=== PATIENT | male | born 1970 | race Native Hawaiian/Other Pacific Islander ===

== ENCOUNTER 2023-12-03 12:55 | Emergency (ER) | payer MEDICARE, MEDICAID, SELFPAY ==
--- NOTE | ~2023-12-03 | CT_ITS ---
EXAMINATION: CT CHEST WITH CONTRAST CLINICAL INFORMATION: Hemoptysis COMPARISON: Chest radiograph from 12/03/2023 TECHNIQUE: Multidetector volumetric CT imaging of the chest was obtained after the administration of 50 mL of Omnipaque 350 intravenous contrast without immediate adverse reactions. Axial MIP volume rendering provided. Sagittal and coronal reformatted images were obtained. This CT examination was performed using dose optimization techniques as appropriate, variously including the following: *Automated exposure control *Adjustment of mA and/or kV according to patient size (this includes techniques or standardized protocols for targeted exams where dose is matched to indication/reason for exam; i.e. extremities or head) *Use of iterative reconstruction technique DLP: 393 mGy-cm FINDINGS: LUNGS/PLEURA: Severe emphysematous changes with large bulla formation in the bilateral lung apices. Spiculated nodular focus along the lateral aspect of the right upper lobe (series 5, image 163) measures 2.1 x 1.7 cm with pleural tethering. Nodular formation in the left upper lobe (series 5, image 123) measuring 9 mm. Central airways are patent. No pneumothorax. No large pleural effusion. MEDIASTINUM: Heart is nonenlarged. No pericardial effusion. No coronary calcifications noted. Poor contrast bolus timing limits evaluation of vascular structures. Aorta is nonaneurysmal. Main pulmonary artery is enlarged. No enlarged lymph nodes per size criteria. Calcifications along the left hilar region may reflect calcified lymph nodes potentially representing sequela of granulomatous disease. Visualized portions of the thyroid are unremarkable AXILLA: No lymphadenopathy. UPPER ABDOMEN: Small hiatal hernia. In the region of the presumed spleen is a irregular/lobulated appearing structure which may reflect prior trauma of the spleen no nonspecific. Hypodense focus right renal upper pole demonstrating fluid attenuation statistically representing cysts, not requiring follow-up. OSSEOUS STRUCTURES: Multilevel degenerative changes of the thoracolumbar spine. CT/CT chest w IV con IMPRESSION: 1. Severe emphysematous changes with large bulla formation in the bilateral lung apices. 2. Spiculated nodular focus along the lateral aspect of the right upper lobe measures 2.1 x 1.7 cm with pleural tethering. Nodular formation in the left upper lobe measuring 9 mm. Follow-up as per Fleischner criteria. 3. Main pulmonary artery is enlarged suggesting elements of pulmonary hypertension. 4. Small hiatal hernia. 5. In the region of the presumed spleen is a irregular/lobulated appearing structure which may reflect prior trauma of the spleen, though nonspecific. Various management parameters for solitary pulmonary nodules are in the literature. According to the Fleischner Society, recommendations for pulmonary nodules are as follows: According to the UPDATED 2017 Fleischner Society recommendations, the advised follow-up imaging for multiple solid nodules, the largest measuring 6 mm or greater, is: HIGH RISK PATIENT: CT at 3-6 months, then at 18-24 months.
--- NOTE | ~2023-12-03 | XR_ITS ---
EXAMINATION: XR CHEST CLINICAL INFORMATION: Bloody sputum for 3 days COMPARISON: None available. TECHNIQUE: 2 views of the chest were obtained. FINDINGS: Moderate emphysematous disease. There are hazy opacities in the right upper mid lung zones. No left-sided areas of consolidation. No pleural effusions. The cardiomediastinal silhouette is normal. XR/XR chest 2V IMPRESSION: Hazy opacities in the right upper mid lung zones may represent pneumonia in the appropriate clinical setting.
[2023-12-03 13:25] VITALS: BP 122/67; PULSE 79; RESP 18; TEMP 36.4; O2SAT 95; BMI 28.2
--- NOTE | 2023-12-03 13:25 | ED_ITS ---
HPI - General Adult General Chief complaint: General Medical Stated complaint: Spitting up blood Time Seen by Provider: 12/03/23 13:57 Source: patient Mode of arrival: ambulatory Limitations: no limitations History of Present Illness ED Provider: Dr. Adams HPI narrative: Patient with a history of lung disease secondary to smoking history, states that he has had lung surgery in the past but couldn't tell me why, now with coughing up blood for the last 3 mornings. Onset (ago): day(s) Severity: mild Exacerbating factors: other (coughing) Related Data Allergies Allergy/AdvReac Type Severity Reaction Status Date / Time No Known Allergies Allergy Verified 12/03/23 13:27 Review of Systems 2 Review of Systems: Yes all other systems are reviewed and are negative Neurologic: Denies Sensory deficit (Neuro) [facility] Past Medical History Medical History (Updated 12/03/23 @ 17:11 by Meir Adams MD) Asthma Diabetes Chronic pain Social History Social History Smoked in Last 30 Days: No Use of substances other than those prescribed or required for medical reasons: No Advance Directives: No Advance Directives Information Provided: No Physical Exam ED Vital Signs: Vital Signs - 24 hr 12/03/23 13:25 12/03/23 15:42 Temperature 97.5 F 98.3 F Pulse Rate 79 78 Respiratory Rate 18 20 Blood Pressure 122/67 106/67 Pulse Oximetry 95 94 Oxygen Delivery Method Room Air Room Air BMI result Body Mass Index 28.2 Const General: healthy appearing Nutritional Appearance: average body habitus Orientation/consciousness: oriented to person and patient oriented x3 Limitations: no limitations HENMT Head: Yes normal to inspection Ears: external ears normal General nose exam: Normal external nose present Mouth: Normal oral and palatal mucosa present and oropharynx normal Throat: Yes posterior oropharynx normal Eyes General: appearance normal, both eyes and all related structures Neck Neck: Yes normal visual inspection Chest Chest palpation & inspection: normal inspection of the chest Resp Auscultation: clear to auscultation bilaterally Cardio Jugular venous distension: no JVD Rate: regular rate Rhythm: regular rhythm Heart sounds: S1 normal heart sound present and S2 normal heart sound present GI Inspection: Yes normal to inspection Palpation (GI): Soft to palpation, nontender and No hepatosplenomegaly present Auscultation: normal bowel sounds General: Yes no CVA tenderness Back/Spine/Pelvis Back: no CVA tenderness Skin General skin exam: no rashes or lesions noted Neuro General: oriented to person and patient oriented x3 Cranial nerves: Yes CN's II-XII intact bilaterally Motor exam (neuro): 5/5 motor strength present throughout Sensory Exam: No Sensory deficit (Neuro) Extrem General: Yes normal to inspection Psych Appearance: grossly normal Course Course Course Narrative: This is a rapid medical exam performed by Michele Escobedo NP: Additional HPI, ROS, PE not included below will be deferred to primary provider. Patient is a 53-year-old male presenting to the ED with complaint of bloody sputum for the past 3 days. States he wakes in the morning and is coughing up the blood sputum, denies other episodes throughout the day. Recently quit smoking 3 months ago. Denies cough or fevers. Plan: CXR, labs Reevaluation(s) Reevaluation #1: Patient did not want to wait so he left prior to my getting the CT readings. I just called the patient to let him know that he has a spiculated lesion in the upper lobe and this could be cancer. He states that he understands Time: 17:05 Medications Administered Discontinued Medications Generic Name Dose Route Start Last Admin Trade Name Domenicoq PRN Reason Stop Dose Admin Iohexol 100 ml 12/03/23 14:50 12/03/23 14:50 Iohexol 350 Mg/Ml 100 Ml Infus..Btl IV 12/03/23 14:51 65 ml ONCE ONE Administration Medical Decision Making Differential Diagnosis Differential Diagnoses: The differential diagnosis associated with the presentation includes (pneumonia, lung cancer, copd exacerbation) Admission/Observation Consideration of admission/observation: Escalation of care including admission/observation considered (upon arrival patient was considered for admission) Lab Data MDM Lab Attestation statement: I reviewed the patient's lab results. 12/03/23 14:16 12/03/23 14:16 Labs: Lab Results 12/03/23 Range/Units 14:16 WBC 8.8 (4.8-10.8) X10*3/uL RBC 4.14 L (4.60-5.80) X10*6/uL Hgb 12.1 L (14.0-18.0) g/dl Hct 36.4 L (42.0-52.0) % MCV 87.9 (80.0-98.0) fL MCH 29.2 (27.0-33.0) pg MCHC 33.2 (31.0-36.0) g/dl RDW 14.7 (11.0-16.0) % Plt Count 363 (160-400) X10*3/uL MPV 9.4 (9.4-12.4) fL Immature Gran % (Auto) 0.2 (0.0-0.4) % Neut % (Auto) 52.4 (45-73) % Lymph % (Auto) 31.7 (20-40) % Bertie % (Auto) 11.9 H (2-11) % Eos % (Auto) 2.9 (0-4) % Baso % (Auto) 0.9 (0-2) % Lymph # (Auto) 2.8 (1.2-4.9) X10*3/uL Bertie # (Auto) 1.1 (0.1-1.2) X10*3/uL Eos # (Auto) 0.3 (0.0-0.4) X10*3/uL Baso # (Auto) 0.1 (0.0-0.2) X10*3/uL Abs Immat Gran (auto) 0.02 (0.00-0.03) X10*3/uL Absolute Neuts (auto) 4.6 (2.0-8.3) x10*3/uL Absolute Nucleated RBC 0.000 (0.0-0.012) X10*3/uL Nucleated RBC % (auto) 0.0 (0.0-0.2) /100WBC Sodium 141 (135-145) mmol/L Potassium 4.8 (3.3-5.1) mmol/L Chloride 107 (96-108) mmol/L Carbon Dioxide 26 (22-29) mmol/L Anion Gap 13 (12-20) BUN 31 H (9-16) mg/dL Creatinine 0.95 (0.5-1.4) mg/dL Estim Creat Clear Calc 112.1 Estimated GFR > 60 Random Glucose 131 H (60-115) mg/dL Calcium 10.1 (8.4-10.2) mg/dL Total Bilirubin 0.1 (0.0-1.0) mg/dL AST 12 (5-37) U/L ALT 14 (0-40) U/L Alkaline Phosphatase 98 (39-117) U/L Total Protein 7.8 (6.5-8.0) g/dL Albumin 4.3 (3.5-5.0) g/dL Influenza Type A (PCR) NEGATIVE (Negative) Influenza Type B (PCR) NEGATIVE (Negative) RSV RNA Qual (PCR) NEGATIVE (Negative) SARS-CoV-2 RNA (RT-PCR) NEGATIVE (Negative) Independent Interpretation I performed an independent interpretation of an: Plain X-Ray (Copd changes) and CT Scan (severe bulla and Copd changes) Radiology Impression Discussion of test interpretation with radiology: I have reviewed the radiologist's reading. (spiculated lesion in the upper lobe of lung concerning for Cancer) Prescription Management I considered prescription management with: Antibiotic (no evidence of pneumonia will not place on abx) Chronic Conditions Patient?s care impacted by: Other (copd) Social Determinants Patient?s care significantly limited by Social Determinants of Health including: Low income Discharge Plan Discharge Clinical Impression: Hemoptysis, Lung mass Patient Disposition: Home, Self-Care Instructions: Hemoptysis (ED) Additional Instructions: there is a spiculated lesion in the upper lobe of the lung this is concerning for cancer Referrals: Get Morin III, MD [Primary Care Provider] - 2 days Print Language: German
[2023-12-03 14:20] LABS: MANUAL DIFF FLAG NO
--- NOTE | 2023-12-03 14:23 | PC.NURSE ---
patient a&ox3, uncooperative not wanting iv or nasal swab but ultimately allowed this nurse and tech to obtain swab/labs and insert IV, pt c/o 02/15 abd pain, also stating I havent taken any of my meds today and I need them all this nurse inquired wondering why he didn't take his medication and pt stated I miss the med pass I guess will notify provider and continue to monitor.
[2023-12-03 14:26] LABS: Basophils Absolute Auto 0.1 X10*3/uL (0.0-0.2); Basophils Percent Auto 0.9 % (0-2); Eosinophils Absolute Auto 0.3 X10*3/uL (0.0-0.4); Eosinophils Percent Auto 2.9 % (0-4); Hematocrit 36.4 % (42.0-52.0); Hemoglobin 12.1 g/dl (14.0-18.0); Imm Gran Abs Auto 0.02 X10*3/uL (0.00-0.03); Imm Gran Pct Auto 0.2 % (0.0-0.4); Lymphocytes Absolute Auto 2.8 X10*3/uL (1.2-4.9); Lymphocytes Percent Auto 31.7 % (20-40); Mean Corpuscular HGB Conc 33.2 g/dl (31.0-36.0); Mean Corpuscular Hemoglobin 29.2 pg (27.0-33.0); Mean Corpuscular Volume 87.9 fL (80.0-98.0); Mean Platelet Volume 9.4 fL (9.4-12.4); Monocytes Absolute Auto 1.1 X10*3/uL (0.1-1.2); Monocytes Percent Auto 11.9 % (2-11); Neutrophils Absolute Auto 4.6 x10*3/uL (2.0-8.3); Neutrophils Percent Auto 52.4 % (45-73); Platelet Count 363 X10*3/uL (160-400); Red Blood Count 4.14 X10*6/uL (4.60-5.80); Red Cell Distribution Width 14.7 % (11.0-16.0); White Blood Count 8.8 X10*3/uL (4.8-10.8)
[2023-12-03 14:38] LABS: Alanine Aminotransferase 14 U/L (0-40); Albumin Level 4.3 g/dL (3.5-5.0); Alkaline Phosphatase 98 U/L (39-117); Anion Gap 13 (12-20); Aspartate Amino Transferase 12 U/L (5-37); Bilirubin Total 0.1 mg/dL (0.0-1.0); Blood Urea Nitrogen 31 mg/dL (9-16); Calcium 10.1 mg/dL (8.4-10.2); Carbon Dioxide 26 mmol/L (22-29); Chloride 107 mmol/L (96-108); Creatinine Clr Calc Pharmacy 112.1; Estimated Glomerular Filt Rate > 60; Glucose Random 131 mg/dL (60-115); Potassium 4.8 mmol/L (3.3-5.1); Sodium 141 mmol/L (135-145); Total Protein 7.8 g/dL (6.5-8.0)
[2023-12-03] MEDS: iohexoL 350 MG/ML 100 ML INFUS..BTL IV (14:50)
[2023-12-03 15:03] LABS: Influenza A PCR NEGATIVE (Negative); Influenza B PCR NEGATIVE (Negative); Resp Syncy Virus RNA Qual PCR NEGATIVE (Negative); SARS COV2 PCR INHOUSE NEGATIVE (Negative)
[2023-12-03 15:42] VITALS: BP 106/67; PULSE 78; RESP 20; TEMP 36.8; O2SAT 94
--- NOTE | 2023-12-03 16:12 | PC.NURSE ---
pt angry at staff because he was needing to move to hallway bed due to a new patient acuity that came in, pt requested for this nurse to take out his IV, he got dressed and stated he was leaving because he was hungry. this nurse spoke with the patient in attempts to prevent him from leaving and explanied why he couldnt eat as of yet, provider was also notified. currently patient has no iv because pt stated you either take this out or I am ripping it out this nurse took out the IV however he is sitting at bedside dressed and hasnt left as of yet.
[2023-12-03 16:39] VITALS: BP 00/0; PULSE 0; RESP 0; TEMP -17.7; TEMP 0; O2SAT 0
--- NOTE | 2023-12-03 16:39 | PC.NURSE ---
pts has become cantankerous and calling people on his phone within distance of this nurse, one of which called this ED stating she was his and that the patient is near syncope because he is diabetic and hasnt eaten or taken his medications since this morning- the was explained to that he had a CT scan and is unable to eat until results- wanting to speak with Dr. Adams the provider and this nurse explained that he was in with a critical patient and unable to take a call at this time. The began screaming at this nurse, this nurse stated to the that I was not willing to argue with her about the care of her who was being well cared for and ended the call. The patient then called another person stating he was mad at waiting on results of his CT scan because he is diabetic, the person on the phone who was on speaker phone told the patient to just leave. Dr. Adams was notified of the phone calls. This nurse asked for the tech to perform a POC, upon the tech obtaining the machine and supplies the patient got up from the stretcher and stated I am leaving, this is bullshit and this nurse walked the patient to the door. Pt was a&ox3, ambulating with a steady gait, will notify Dr. Adams that the patient has left.
--- NOTE | 2023-12-03 16:48 | PC.NURSE ---
provider notified that pt left
== END 2023-12-03 16:39 | disposition left against medical advice (07) ==
PROVIDERS: Registered Nurse Emergency; Emergency Provider Emergency Medicine; PCP Internal Medicine
DX: R04.2 Hemoptysis (principal); R91.8 Other nonspecific abnormal finding of lung field; E11.9 Type 2 diabetes mellitus without complications; J45.909 Unspecified asthma, uncomplicated; Z87.891 Personal history of nicotine dependence; Z03.818 Encounter for observation for suspected exposure to other biological agents ruled out
CPT/HCPCS: 0241U; 71046; 71260; 80053; 85025; 99284; Q9967

== ENCOUNTER 2024-01-13 11:31 | Emergency (ER) | payer OTHER, SELFPAY ==
[2024-01-13 11:40] VITALS: BP 70/40; PULSE 106; RESP 20; TEMP 36.3; O2SAT 95; BMI 27.7
[2024-01-13 11:52] LABS: Glucose, Whole Blood 189 mg/dL (60-115)
--- NOTE | 2024-01-13 12:00 | PC.NURSE ---
pt brought to room from triage for concerns over hypotension. pt transferred himself to the bed with minimal assistance. pt refused all vs, piv placement. obtunded, though easily roused, physically pulling away during attempts to care for him. sinus david on monitor. respirations even nonlaboured, rate wnl.
--- NOTE | 2024-01-13 12:56 | ED_ITS ---
HPI - General Adult General Chief complaint: General Medical Stated complaint: medication reup Time Seen by Provider: 01/13/24 12:48 Source: patient Mode of arrival: ambulatory Limitations: no limitations History of Present Illness ED Provider: Maddy Luna PA-C HPI narrative: Patient is a 53 year old assigned male at with a history of opiate use presenting to the emergency department today requesting his methadone dose. Patient states that he needs his methadone dose but has been off of his methadone for 3 days. Patient denies any dizziness, lightheadedness, abdominal pain, nausea, vomiting, fever, chills, blurry vision, double vision, loss of vision, chest pain, difficulty breathing, shortness of breath, back pain, night sweats, pain with urination, increased urinary frequency, increased urinary urgency, blood in his urine or stool, syncope or a near syncopal episode, recent trauma or falls, bowel incontinence, bladder incontinence, or any other complaints at this time. Relieving factors: none Exacerbating factors: none Associated symptoms: denies other symptoms Treatments prior to arrival: none Related Data Allergies Allergy/AdvReac Type Severity Reaction Status Date / Time No Known Allergies Allergy Verified 01/13/24 11:46 Review of Systems Constitutional: Constitutional: Reports no additional constitutional complaints, Denies chills, Denies fever(s) and Denies night sweats Eyes: Eyes: Reports no additional eye complaints, Denies blurry vision, Denies change in vision, Denies diplopia, Denies eye discharge, Denies loss of vision and Denies eye pain ENT: Denies dizziness Cardiovascular: Cardiovascular: Reports no additional cardiovascular complaints, Denies chest pain, Denies lightheadedness, Denies Loss of Consciousness and Denies dyspnea Respiratory: Respiratory: Reports no additional respiratory complaints and Denies dyspnea Gastrointestinal: Gastrointestinal: Reports no additional gastrointestinal complaints, Denies abdominal pain, Denies melena, Denies hematochezia, Denies change in bowel habits and Denies change in stool character Genitourinary: Genitourinary: Reports no additional male genitourinary complaints, Denies hematuria, Denies oliguria, Denies difficulty urinating, Denies dysuria, Denies urinary frequency, Denies urinary hesitancy, Denies urinary incontinence and Denies urinary urgency Musculoskeletal: Musculoskeletal: Reports no additional musculoskeletal complaints, Denies numbness and Denies tingling Neurologic: Denies dizziness, Denies loss of vision, Denies numbness and Denies tingling Psychiatric: Psychiatric: Reports no additional psychiatric complaints Endocrine: Endocrine: Reports no additional endocrine complaints Hematologic/Lymphatic: Hematologic/Lymphatic: Reports no additional hematologic/lymphatic complaints Allergic/Immunologic: Allergic/Immunologic: Reports no additional allergic/immunologic complaints [facility] Past Medical History Attestation statement: The following information was validated with the patient. Source: old records reviewed and nursing notes reviewed Medical History Asthma Diabetes Chronic pain Social History Social History Advance Directives: No Advance Directives Information Provided: No Do you have a plan to hurt others: No Plan Physical Exam ED Vital Signs: Vital Signs - 24 hr 01/13/24 11:40 01/13/24 17:54 Temperature 97.3 F 97.9 F Pulse Rate 106 H 63 Respiratory Rate 20 14 Blood Pressure 70/40 L 85/41 L Pulse Oximetry 95 95 Oxygen Delivery Method Room Air Room Air BMI result Body Mass Index 27.7 Const General: cooperative, no acute distress, alert and awake Nutritional Appearance: well nourished Orientation/consciousness: patient oriented x3 Limitations: no limitations HENMT Head: Yes normal to inspection and Yes atraumatic Ears: hearing grossly normal bilaterally and external ears normal General nose exam: Normal external nose present, no nasal discharge noted and no epistaxis Face and sinus: Yes normal facial exam, No abrasion and No laceration Mouth: Normal oral and palatal mucosa present, no drooling and no muffled voice Eyes General: appearance normal, both eyes and all related structures Periorbital: periorbital findings normal Eyelids: Yes eyelids normal Conjunctivae: conjunctivae normal Pupils: Equal, round and reactive pupils present EOM: EOMs intact bilaterally Neck Neck: Yes normal visual inspection, Yes full ROM and Yes no lymphadenopathy Chest Chest palpation & inspection: normal inspection of the chest Resp Effort & Inspection: normal respiratory effort and able to speak in complete sentences GI Inspection: Yes normal to inspection Neuro General: patient oriented x3 and moves all extremities Cranial nerves: Yes Equal, round and reactive pupils present Cognition (Neuro): normal cognition Extrem General: Yes normal to inspection, Yes full ROM and Yes capillary refill normal Psych Appearance: grossly normal Mental Status: mental status grossly normal Affect: normal affect Attitude: cooperative Thought process: Normal thought process present Thought content: Normal thought content present Insight: Good insight present (Psych) Medications Administered Discontinued Medications Generic Name Dose Route Start Last Admin Trade Name Cam PRN Reason Stop Dose Admin Sodium Chloride 1,000 mls @ 999 mls/hr 01/13/24 13:00 01/13/24 17:58 Ns IV 01/13/24 14:00 Not Given .Q1H1M MARNIE Methadone HCl 30 mg 01/13/24 13:38 01/13/24 17:59 Methadone Hcl 20 Mg/2 Ml Oral.Conc PO 01/13/24 13:39 Not Given ONCE ONE Medical Decision Making Medical Decision Making MDM Narrative: Patient is a 53 year old assigned male at with a history of opiate use presenting to the emergency department today requesting his methadone dose. Patient's physical exam was unremarkable. Patient refused all blood work. Patient's refused to provide a urine sample. I explained my physical exam findings to the patient. I answered all questions asked by the patient. I explained to the patient that because it has been 72 hours since his last methadone dose - I'm going to give him 30mg today. Patient was hypotensive in the department however, he refused any kind of medical work up including labs. Patient also refused an IV to get fluids. Patient was able to tolerate PO fluid. I stressed the importance of the patient taking his medication as directed (either prescribed or as the over the counter packaging recommends). I stressed the importance of the patient following up with his primary care provider. I stressed the importance of the patient returning to the emergency department immediately if his symptoms were to worsen or if he were to develop any dizziness, shortness of breath, difficulty breathing, chest pain, blurry vision, loss of vision, nausea, vomiting, abdominal pain, fever, chills, back pain, or any other complaints. Patient verbalized agreement and understanding with this treatment plan and discharge. Differential Diagnosis Differential Diagnoses: The differential diagnosis associated with the presentation includes Hypotension Methadone dose Opiate use disorder Admission/Observation Consideration of admission/observation: Escalation of care including admission/observation considered Patient would have been admitted to the hospital had his work up had any findings where hospital admission was appropriate and his clinical presentation warranted hospital admission. Lab Data [facility] Lab Attestation statement: I reviewed the patient's lab results. My interpretation of these studies and their corresponding values is that they are grossly normal. Labs: Lab Results 01/13/24 Range/Units 11:46 POC Glucose 189 H (60-115) mg/dL Discharge Plan Discharge Clinical Impression: Methadone use, Hypotension Patient Disposition: Home, Self-Care Instructions: Hypotension (ED), Opioid Use Disorder (ED) Additional Instructions: Follow up with your primary care provider. Return to the emergency department immediately if your symptoms worsen or if you develop any dizziness, shortness of breath, difficulty breathing, chest pain, blurry vision, loss of vision, nausea, vomiting, abdominal pain, fever, chills, back pain, or any other complaints. Referrals: [place] [Primary Care Provider] - Print Language: Upper Sorbian
[2024-01-13 17:54] VITALS: BP 85/41; PULSE 63; RESP 14; TEMP 36.6; O2SAT 95
--- NOTE | 2024-01-13 18:34 | MHC.EDTECH ---
Patient is refusing blood work and EKG
--- NOTE | 2024-01-13 19:52 | PC.NURSE ---
Pt awake and alert, requesting Methadone dose. Refusing to have vitals, EKG, and labs done. Provider made aware. Methadone ordered and pt to be discharged per pts request.
[2024-01-13] MEDS: methADONE HCl 20 MG/2 ML ORAL.CONC 30 MG PO (19:58)
[2024-01-13 20:01] VITALS: BP 00/00; PULSE 0; RESP 0; TEMP -17.7; TEMP 0
== END 2024-01-13 20:09 | disposition home or self-care (01) ==
PROVIDERS: Emergency Provider Emergency Medicine
DX: I95.9 Hypotension, unspecified (principal); F11.90 Opioid use, unspecified, uncomplicated; E11.9 Type 2 diabetes mellitus without complications; J45.909 Unspecified asthma, uncomplicated
CPT/HCPCS: 82947; 99282; 99283